=== PATIENT | female | born 1935 | race Caucasian/White ===

== ENCOUNTER 2018-08-24 19:25 | Emergency (ER) | payer OTHER ==
[~2018-08-24] VITALS: Ht 157.5 cm; Wt 53.1 kg
[2018-08-24] MEDS ORDERED: SYNTHROID88 MCG (19:28)
[2018-08-24] MEDS ORDERED: LIPITOR80 MG (19:28)
== END 2018-08-24 22:35 | disposition home or self-care (01) ==
LOC: ER 19:25
DX: M25.552 Pain in left hip (principal); S32.592S Other specified fracture of left pubis, sequela; S32.512S Fracture of superior rim of left pubis, sequela; W01.198S Fall on same level from slipping, tripping and stumbling with subsequent striking against other object, sequela

== ENCOUNTER 2022-04-03 19:06 | Emergency (ER) | payer OTHER ==
[~2022-04-03] VITALS: Ht 162.6 cm; Wt 45.4 kg
[~2022-04-03 19:06] MED LIST: LIPITOR80 MG; SYNTHROID88 MCG
== END 2022-04-03 20:40 | disposition home or self-care (01) ==
LOC: ER 19:06
DX: I83.209 Varicose veins of unspecified lower extremity with both ulcer of unspecified site and inflammation (principal); L97.909 Non-pressure chronic ulcer of unspecified part of unspecified lower leg with unspecified severity; Z88.6 Allergy status to analgesic agent

== ENCOUNTER 2022-04-06 07:12 | Outpatient (CLI) | payer OTHER | END 2022-04-06 08:01 | disposition home or self-care (01) | LOC: NUCLEAR 07:12 | PROVIDERS: ATTEND Surgery | DX: I78.8 Other diseases of capillaries (principal); Z88.6 Allergy status to analgesic agent ==

== ENCOUNTER → 2022-04-07 | Outpatient (CLI) | payer OTHER | END | disposition home or self-care (01) | LOC: NUCLEAR 06:45 | PROVIDERS: ATTEND Surgery | DX: I78.8 Other diseases of capillaries (principal); Z88.6 Allergy status to analgesic agent ==